=== PATIENT | male | born 1930 | race Caucasian/White ===

== ENCOUNTER 2019-07-07 10:43 | Emergency (ER) | payer MEDICARE ==
[2019-07-07 12:55] LABS: ABS Basophils 0.1 10^3/ul (0-0.2); ABS Eosinophils 0.4 10^3/ul (0-0.6); ABS Lymphocytes 2.1 10^3/ul (1.0-4.8); ABS Monocytes 0.9 10^3/ul (0-0.8); ABS Neutrophils 5.7 10^3/ul (1.5-7.7); Hematocrit 41 % (42-52); Hemoglobin 13.5 g/dL (14.0-18.0); Mean Corpuscular HGB Conc 34 g/dL (31-36); Mean Corpuscular Hemoglobin 29 pg (27-31); Mean Corpuscular Volume 86 fL (80-94); Mean Platelet Volume 6.9 fL (7.4-10.4); Platelet Count 335 10^3/uL (150-450); Red Blood Count 4.71 10^6 /uL (4.18-5.48); Red Cell Distribution Width 15 % (10-15); White Blood Count 9.1 10^3/uL (3.5-10.8)
[2019-07-07 13:16] LABS: Albumin 3.8 g/dL (3.2-5.2); Albumin/Globulin Ratio 1.2 (1-3); Calcium 9.1 mg/dL (8.6-10.3); EGFR African American 72.8 (>60); EGFR Non-African American 60.2 (>60); Globulin 3.1 g/dL (2-4); Potassium 3.6 mmol/L (3.5-5.0); Total Bilirubin 0.8 mg/dL (0.2-1.0); Total Protein 6.9 g/dL (6.4-8.9)
--- NOTE | 2019-07-07 13:44 | ED ---
Dizziness - HPI Summary HPI Summary: Pt is an 89 y/o M w HTN presenting to the ED with a chief complaint of dizziness /lightheadedness initially onset this morning. He woke up with slight dizziness, took a shower, got ready for the day the lightheadedness resolved. However when he walked, when he got to the living room the lightheadeness resolved. He describes the dizziness as lightheadedness, like hes going to fall over/pass out, not a/w chest pain or vertigo. He also notes that yesterday he was reading and he had an episode of blurred vision which resolved. He reports a hx of bradycardia in the past w HR in 50's. Does not take beta aris. Recently moved here w son, has PCP apt in 2 weeks. Hx HTN, no known arrhythmias or cardiac disease. - History Of Current Complaint Chief Complaint: EDHypertension Stated Complaint: DIZZY Time Seen by Provider: 07/07/19 13:03 Hx Obtained From: Patient Onset/Duration: Still Present, Suddenly Timing: Hours Severity Initially: Moderate Severity Currently: Moderate Character: Lightheaded, Dizzy Aggravating Factor(s): Nothing Alleviating Factor(s): Nothing Associated Signs And Symptoms: Positive: Negative - Allergies/Home Medications Allergies/Adverse Reactions: Allergies Allergy/AdvReac Type Severity Reaction Status Date / Time codeine Allergy Unknown Verified 07/07/19 13:32 Reaction Details PMH/Surg Hx/FS Hx/Imm Hx Previously Healthy: Yes Endocrine/Hematology History: Reports: Hx Diabetes Cardiovascular History: Reports: Hx Hypercholesterolemia, Hx Hypertension Infectious Disease History: No Infectious Disease History: Denies: Traveled Outside the [place] in Last 30 Days - Family History Known Family History: Negative: Diabetes - Social History Alcohol Use: Occasionally Hx Substance Use: No Substance Use Type: Reports: None Hx Tobacco Use: Yes Smoking Status (MU): Former Smoker Review of Systems Negative: Fever Neurological: Other - dizziness, lightheadedness All Other Systems Reviewed And Are Negative: Yes Physical Exam - Summary Physical Exam Summary: Constitutional: Well-developed, Well-nourished, Alert. (-) Distressed. Pt is hard of hearing. Skin: Warm, Dry HENT: Normocephalic; Atraumatic Eyes: Conjunctiva normal Neck: Musculoskeletal ROM normal neck. (-) JVD, (-) Nuchal rigidity Cardio: Rhythm regular, rate bradycardic, Heart sounds normal; Intact distal pulses; Radial pulses are 2+ and symmetric. (-) Murmur Pulmonary/Chest wall: Effort normal. (-) Respiratory distress, (-) Wheezes, (-) Rales Abd: Soft. (-) Tenderness, (-) Distension, (-) Guarding, (-) Rebound Musculoskeletal: (-) Edema Lymph: (-) Cervical adenopathy Neuro: Alert, PERRL, Oriented x3, Strength normal, Cranial nerves II-XII are grossly intact. SILT, Strength 5/5 BUE and BLE, (-) Dysmetria, (-) Nystagmus, ambulates w steady gait. Psych: Mood and affect Normal Triage Information Reviewed: Yes Vital Signs On Initial Exam: Initial Vitals Temp Pulse Resp BP Pulse Ox 98.3 F 48 16 191/82 97 07/07/19 10:45 07/07/19 10:45 07/07/19 10:45 07/07/19 10:45 07/07/19 10:45 Vital Signs Reviewed: Yes Procedures - Sedation Patient Received Moderate/Deep Sedation with Procedure: No Diagnostics - Vital Signs Vital Signs Temp Pulse Resp BP Pulse Ox 07/07/19 13:04 49 183/84 100 07/07/19 12:43 97.6 F 48 16 171/74 98 07/07/19 10:45 98.3 F 48 16 191/82 97 - Laboratory Lab Results: Lab Results 07/07/19 07/07/19 Range/Units 12:29 12:29 WBC 9.1 (3.5-10.8) 10^3/uL RBC 4.71 (4.18-5.48) 10^6 /uL Hgb 13.5 L (14.0-18.0) g/dL Hct 41 L (42-52) % MCV 86 (80-94) fL MCH 29 (27-31) pg MCHC 34 (31-36) g/dL RDW 15 (10-15) % Plt Count 335 (150-450) 10^3/uL MPV 6.9 L (7.4-10.4) fL Neut % (Auto) 62.6 % Lymph % (Auto) 23.0 % [place] % (Auto) 9.6 % Eos % (Auto) 4.0 % Baso % (Auto) 0.8 % Absolute Neuts (auto) 5.7 (1.5-7.7) 10^3/ul Absolute Lymphs (auto) 2.1 (1.0-4.8) 10^3/ul Absolute Monos (auto) 0.9 H (0-0.8) 10^3/ul Absolute Eos (auto) 0.4 (0-0.6) 10^3/ul Absolute Basos (auto) 0.1 (0-0.2) 10^3/ul Absolute Nucleated RBC 0.0 10^3/ul Nucleated RBC % 0.0 Sodium 138 (135-145) mmol/L Potassium 3.6 (3.5-5.0) mmol/L Chloride 106 (101-111) mmol/L Carbon Dioxide 28 (22-32) mmol/L Anion Gap 4 (2-11) mmol/L BUN 23 (6-24) mg/dL Creatinine 1.15 (0.67-1.17) mg/dL Est GFR ( Amer) 72.8 (>60) Est GFR (Non-Af Amer) 60.2 (>60) BUN/Creatinine Ratio 20.0 (8-20) Glucose 85 (70-100) mg/dL Calcium 9.1 (8.6-10.3) mg/dL Total Bilirubin 0.80 (0.2-1.0) mg/dL AST 18 (13-39) U/L ALT 15 (7-52) U/L Alkaline Phosphatase 60 (34-104) U/L Troponin I 0.00 (<0.04) ng/mL Total Protein 6.9 (6.4-8.9) g/dL Albumin 3.8 (3.2-5.2) g/dL Globulin 3.1 (2-4) g/dL Albumin/Globulin Ratio 1.2 (1-3) Result Diagrams: 07/07/19 12:29 07/07/19 12:29 Lab Statement: Any lab studies that have been ordered have been reviewed, and results considered in the medical decision making process. - EKG 1049 Cardiac Rate: Bradycardia - 47bpm EKG Rhythm: Sinus Bradycardia ST Segment: Normal Ectopy: None Summary of EKG Findings: An EKG at 1049 shows sinus bradycardia at 47bpm with nml axis, nml intervals. There are T-wave inversions in lead I and aVL. No STEMI. No prior for comparison. ED physician has reviewed and interpreted this report. 1349 Cardiac Rate: Bradycardia - 50bpm EKG Rhythm: Sinus Bradycardia ST Segment: Normal Ectopy: None Summary of EKG Findings: An EKG at 1349 shows sinus bradycardia at 50bpm with prolonged MD, nml axis, and no changes from prior EKG. No STEMI. ED physician has reviewed and interpreted this report. Re-Evaluation - Re-Evaluation 1st re-eval Re-Evaluation Time: 15:17 Change: Improved Comment: Pt's holter monitor is placed. Dizzy Course/Dx - Course Course Of Treatment: 89 y/o male w hx HTN and bradycardia p/w lightheadedness. - Dizziness ddx: Differential diagnosis includes: Cardiac causes - will check EKG, troponin, HR in 50's when ambulating. Electrolyte disturbances - will check CMP. Anemia - will check CBC. No vertigo to suggest posterior stroke. Patient has no focal neurologic abnormalities and no recurrent lightheadedness. Heart rate in the high 40s low 50s here. Patient states he normally runs in the 50s. No syncope, no chest pain. Patient states he had lightheadedness while here. Dr. Hawthorne of cardiology was consulted to states patient ca get holter monitor, and follow-up in her office. No indications for pacemaker placement this time. Patient and son comfortable with that. Patient was given a Holter monitor and will return for worsening symptoms. - Diagnoses Provider Diagnoses: Lightheadedness, Bradycardia Discharge ED - Sign-Out/Discharge Documenting (check all that apply): Patient Departure - Discharge Plan Condition: Stable Disposition: HOME Patient Education Materials: Bradycardia (ED) Referrals: [facility] [Outside] Holly Hawthorne MD [Medical Doctor] - - Billing Disposition and Condition Condition: STABLE Disposition: Home - Attestation Statements Document Initiated by Scribe: Yes Documenting Scribe: Geetha Corbett Provider For Whom Scribe is Documenting (Include Credential): Sandra Goodrich MD. Scribe Attestation: Geetha Wick, scribed for Sandra Goodrich MD. on 07/07/19 at 1522. Scribe Documentation Reviewed: Yes Provider Attestation: The documentation as recorded by the scribe, Geetha Corbett accurately reflects the service I personally performed and the decisions made by me, Sandra Goodrich MD. Status of Scribe Document: Viewed Consult Consult: 2727 - I spoke with Dr. Hawthorne who recommends discharging the patient on a Holter monitor. She recommends him following up with her, and states that the pt may need a pacemaker at some point.
[2019-07-07 15:30] VITALS: BP 177/83
== END 2019-07-07 15:29 | disposition home or self-care (01) ==
LOC: ED 10:43
DX: R42 Dizziness and giddiness (principal); R00.1 Bradycardia, unspecified; I10 Essential (primary) hypertension; E11.9 Type 2 diabetes mellitus without complications; E78.00 Pure hypercholesterolemia, unspecified; Z87.891 Personal history of nicotine dependence; Z79.84 Long term (current) use of oral hypoglycemic drugs; Z79.899 Other long term (current) drug therapy; Z88.5 Allergy status to narcotic agent
CPT/HCPCS: 36415; 80053; 84484; 85025; 93005; 93225; 93226; 99282

== ENCOUNTER 2019-08-08 22:41 | Emergency (ER) | payer MEDICARE ==
--- OUTSIDE RECORDS SUMMARY | 2019-08-08 22:54 | XMS REPORT | Continuity of Care Document ---
:1930 External Reference #:[id number] Author Name Patricia Rivera MD (transmitted by agent of provider Jennifer Fairbanks) Address [address], [place] [address] Care Team Providers Name Role Phone Patricia Rivera MD - Internal Care Team Information Surveillance Analyst Medicine Problems Description No Information Available Social History Type Date Description Comments Sex Unknown Tobacco Use Start: Unknown Patient has never smoked Smoking Status Reviewed: 07/28/19 Patient has never smoked Allergies, Adverse Reactions, Alerts Active Allergies Reaction Severity Comments Date Codeine doesn't remember..long time ago 07/14/2019 Medications Active Medications SIG Qnty Indications Ordering Provider Date Amlodipine Besylate Take 1 tab by 90tabs I10 Patricia Rivera, 07/28/2019 5mg mouth daily MD Tablets Silodosin Take 1 tab daily 30caps N40.0 Patricia Rivera, 07/28/2019 4mg Capsules at bedtime MD Simvastatin 1 by mouth every Unknown 20mg day Tablets Lisinopril 1 by mouth every Unknown 40mg Tablets day Glipizide take one tablet Unknown 5mg Tablets by mouth twice a day Immunizations Description No Information Available Vital Signs Date Vital Result Comment 07/28/2019 11:04am Weight 209.38 lb Heart Rate 48 /min BP Systolic 181 mmHg BP Diastolic 80 mmHg BP Systolic Sitting 148 mmHg BP Diastolic Sitting 76 mmHg Respiratory Rate 16 /min Body Temperature 97.3 F O2 % BldC Oximetry 99 % 07/14/2019 1:20pm Height 67.25 inches 5'7.25" Weight 203.00 lb Heart Rate 48 /min BP Systolic Sitting 174 mmHg BP Diastolic Sitting 83 mmHg Body Temperature 97.9 F O2 % BldC Oximetry 98 % BMI (Body Mass Index) 31.6 kg/m2 Results Test Acquired Date Facility Test Result H/L Range Note Basic Metabolic 07/14/2019 [facility] Sodium 140 mmol/L Normal 135-[address] [place] [address] [phone] Potassium 3.9 mmol/L Normal 3.5-5.0 Chloride 107 mmol/L Normal 101-111 Co2 Carbon Dioxide 27 mmol/L Normal 22-32 Anion Gap 6 mmol/L Normal 2-11 Glucose 96 mg/dL Normal 70-100 Blood Urea Nitrogen 28 mg/dL High 6-24 Creatinine 1.25 mg/dL High 0.67-1.17 BUN/Creatinine Ratio 22.4 High 8-20 Calcium 9.1 mg/dL Normal 8.6-10.3 Egfr Non- 54.6 >60 Egfr 66.1 >60 1 Laboratory test 07/14/2019 [facility] Hemoglobin A1c 5.9 % High 4.0-5.[address] (Glyco HGB) [place] [address] [phone] TSH (Thyroid Stim Horm) 3.36 mcIU/mL Normal 0.34-5.60 Urine Microalbumin 07/14/2019 [facility] Urine Creatinine 107.89 mg/dL Random [address] [place] [address] [phone] Ur Microalbumin (mg/L) 898.9 mg/L Urine Microalbumin/Creatinine 833.1 High <31 CBC No Diff 07/14/2019 [facility] White Blood 10.4 10^3/uL Normal 3.5-10.[address] [place] [address] [phone] Red Blood Count 4.53 10^6/uL Normal 4.18-5.48 Hemoglobin 13.1 g/dL Low 14.0-18.0 Hematocrit 39 % Low 42-52 Mean Corpuscular Volume 85 fL Normal 80-94 Mean Corpuscular Hemoglobin 29 pg Normal 27-31 Mean Corpuscular HGB Conc 34 g/dL Normal 31-36 Red Cell Distribution Width 15 % Normal 10-15 Platelet Count 311 10^3/uL Normal 150-450 Mean Platelet Volume 7.3 fL Low 7.4-10.4 Serum or plasma 07/07/2019 N2N/CCD Import Serum or plasma 138 135-145 sodium measurement sodium measurement mmol/L (moles/volume) (moles/volume) Serum or plasma 07/07/2019 N2N/CCD Import Serum or plasma 3.6 3.5-5.0 potassium potassium mmol/L measurement measurement (moles/volum (moles/volume) Serum or plasma 07/07/2019 N2N/CCD Import Serum or plasma 106 101-111 chloride measurement chloride measurement mmol/L (moles/volume (moles/volume) Serum or plasma 07/07/2019 N2N/CCD Import Serum or plasma 28 mmol/L 22- 32 carbon dioxide, carbon dioxide, total measurement total measurement (moles/volume) Serum or plasma 07/07/2019 N2N/CCD Import Serum or plasma 4 mmol/L 2-11 anion gap anion gap Serum glucose 07/07/2019 N2N/CCD Import Serum glucose 85 mg/dL 70-100 measurement measurement (mass/volume) (mass/volume) Serum or plasma urea 07/07/2019 N2N/CCD Import Serum or plasma urea 23 mg/ dL 6-24 nitrogen measurement nitrogen measurement (mass/vo (mass/volume) Serum or plasma 07/07/2019 N2N/CCD Import Serum or plasma 1.15 0.67- 1.17 creatinine creatinine mg/dL measurement measurement (mass/volum (mass/volume) Serum or plasma urea 07/07/2019 N2N/CCD Import Serum or plasma urea 20.0 8-20 nitrogen/creatinine nitrogen/creatinine ratio ratio Serum or plasma 07/07/2019 N2N/CCD Import Serum or plasma 9.1 mg/dL 8.6- 10.3 calcium measurement calcium measurement (mass/volume) (mass/volume) Serum total protein 07/07/2019 N2N/CCD Import Serum total protein 6.9 g/dL 6.4-8.9 measurement measurement (mass/volume) (mass/volume) Serum or plasma 07/07/2019 N2N/CCD Import Serum or plasma 3.8 g/dL 3.2- 5.2 albumin measurement albumin measurement by bromocresol by bromocresol green (BCG) dye binding method (ma Lab Results 07/07/2019 N2N/CCD Import Globulin 3.1 g/dL 2-4 Serum or plasma 07/07/2019 N2N/CCD Import Serum or plasma 1.2 1-3 albumin/globulin albumin/globulin mass ratio mass ratio Serum or plasma 07/07/2019 N2N/CCD Import Serum or plasma 0.80 0.2-1.0 total bilirubin total bilirubin mg/dL measurement (mass/ measurement (mass/volume) Serum or plasma 07/07/2019 N2N/CCD Import Serum or plasma 60 U/L 34-104 alkaline phosphatase alkaline phosphatase measurement ( measurement (enzymatic activity/volume) Serum or plasma 07/07/2019 N2N/CCD Import Serum or plasma 15 U/L 7-52 alanine alanine aminotransferase aminotransferase measureme measurement (enzymatic activity/volume) Serum or plasma 07/07/2019 N2N/CCD Import Serum or plasma 18 U/L 13-39 aspartate aspartate aminotransferase aminotransferase measure measurement (enzymatic activity/volume) Serum or plasma 07/07/2019 N2N/CCD Import Serum or plasma 0.00 troponin i.cardiac troponin i.cardiac ng/mL measurement (ma measurement (mass/volume) Estimated glomerular 07/07/2019 N2N/CCD Import Estimated glomerular 60.2 filtration rate filtration rate (GFR) non-Afr (GFR) non- Lab Results 07/07/2019 N2N/CCD Import Estimated GFR 72.8 () Automated blood 07/07/2019 N2N/CCD Import Automated blood 9.1 3.5-10.8 leukocytes count leukocytes count 10^3/uL corrected for nuc corrected for nucleated erythrocytes (number/volume) Automated blood 07/07/2019 N2N/CCD Import Automated blood 4.71 4.18- 5.48 erythrocyte count erythrocyte count 10^6/uL (number/volume) (number/volume) Blood hemoglobin 07/07/2019 N2N/CCD Import Blood hemoglobin 13.5 g/dL 14.0-18.0 measurement measurement (mass/volume) (mass/volume) Automated blood 07/07/2019 N2N/CCD Import Automated blood 41 % 42-52 hematocrit hematocrit (percentage) (percentage) Automated 07/07/2019 N2N/CCD Import Automated 86 fL 80-94 erythrocyte mean erythrocyte mean corpuscular volume corpuscular volume Automated 07/07/2019 N2N/CCD Import Automated 29 pg 27-31 erythrocyte mean erythrocyte mean corpuscular corpuscular hemoglobin hemoglobin (mass per erythrocyte) Automated 07/07/2019 N2N/CCD Import Automated 34 g/dL 31-36 erythrocyte mean erythrocyte mean corpuscular corpuscular hemoglobin hemoglobin concentration measurement (mass/vol Automated 07/07/2019 N2N/CCD Import Automated 15 % 10-15 erythrocyte erythrocyte distribution width distribution width ratio ratio Automated blood 07/07/2019 N2N/CCD Import Automated blood 335 150-450 platelet count platelet count 10^3/uL (number/volume) (number/volume) Automated blood 07/07/2019 N2N/CCD Import Automated blood 6.9 fL 7.4- 10.4 platelet mean volume platelet mean volume measurement measurement CT biopsy liver 07/07/2019 N2N/CCD Import CT biopsy liver 5.7 1.5-7.7 10^3/ul Blood lymphocytes 07/07/2019 N2N/CCD Import Blood lymphocytes 2.1 1.0- 4.8 automated count automated count 10^3/ul (number/volume) (number/volume) Blood monocytes 07/07/2019 N2N/CCD Import Blood monocytes 0.9 0-0.8 automated count automated count 10^3/ul (number/volume) (number/volume) Automated blood 07/07/2019 N2N/CCD Import Automated blood 0.4 0-0.6 eosinophil count eosinophil count 10^3/ul (number/volume) (number/volume) Automated blood 07/07/2019 N2N/CCD Import Automated blood 0.1 0-0.2 basophil count basophil count 10^3/ul (number/volume) (number/volume) Blood nucleated 07/07/2019 N2N/CCD Import Blood nucleated 0.0 erythrocytes erythrocytes 10^3/ul automated count automated count (numb (number/volume) Automated blood 07/07/2019 N2N/CCD Import Automated blood 62.6 % neutrophils/100 neutrophils/100 leukocytes leukocytes Automated blood 07/07/2019 N2N/CCD Import Automated blood 23.0 % lymphocytes/100 lymphocytes/100 leukocytes leukocytes Automated blood 07/07/2019 N2N/CCD Import Automated blood 9.6 % monocytes/100 monocytes/100 leukocytes leukocytes Automated blood 07/07/2019 N2N/CCD Import Automated blood 4.0 % eosinophils/100 eosinophils/100 leukocytes leukocytes Automated blood 07/07/2019 N2N/CCD Import Automated blood 0.8 % basophils/100 basophils/100 leukocytes leukocytes Automated blood 07/07/2019 N2N/CCD Import Automated blood 0.0 nucleated nucleated erythrocytes erythrocytes detection detection 1 Because ethnic data is not always readily available, this report includes an eGFR for both -Americans and non- Americans. The National Kidney Disease Education Program (NKDEP) does not endorse the use of the MDRD equation for patients that are not between the ages of 18 and 70, are , have extremes of body size, muscle mass, or nutritional status, or are non- or non-. According to the National Kidney Foundation, irrespective of diagnosis, the stage of the disease is based on the level of kidney function: Stage Description GFR(mL/min/1.73 m(2)) 1 Kidney damage with normal or decreased GFR 90 2 Kidney damage with mild decrease in GFR 60-89 3 Moderate decrease in GFR 30-59 4 Severe decrease in GFR 15-29 5 Kidney failure <15 (or dialysis) 2 Therapeutic target for the treatment of diabetes mellitus patients is <7% HBA1C, and in selective patients <6.0%. Please refer to [place] [employer] diabetic care guidelines for further information. Procedures Date Code Description Status 07/12/2019 48535 Holter Monitor Review (24 hr)dr kurtz & clary only Completed Medical Devices Description No Information Available Encounters Description No Information Available Assessments Date Code Description Provider 07/28/2019 I10 Essential (primary) hypertension Patricia Rivera MD 07/28/2019 E11.9 Type 2 diabetes mellitus without complications Patricia Rivera MD 07/28/2019 N40.0 Benign prostatic hyperplasia without lower Patricia Rivera MD urinary tract symptoms 07/14/2019 R42 Dizziness and giddiness Patricia Rivera MD 07/14/2019 E11.9 Type 2 diabetes mellitus without complications Patricia Rivera MD 07/14/2019 I10 Essential (primary) hypertension Patricia Rivera MD 07/14/2019 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 Plan of Treatment 07/28/2019 - Patricia Rivera MDI10 Essential (primary) hypertensionNew Medication:Amlodipine Besylate 5 mg - Take 1 tab by mouth dailyComments:Your BP is still elevated todayBP Goal <130/80Please monitor BP at home for the next 2-3 weeks and leave the readings in the office STOP DyazideSTART Hydroclorothiazide 25mg dailySTART Amlodipine 5mg dailyCONTINUE Lisinopril 40mg daily CONTINUE Glipizide 5mg 1/2 tab daily CONTINUE SimvastatinSTART Silodosin Please sign ALEJANDRO and have hx faxed to [address], [address], [place] [address] Fax E11.9 Type 2 diabetes mellitus without complicationsComments:CONTINUE Glipizide 5mg 1/2 tab dailyReferral:Boris Edwards MD, [email or web address] Benign prostatic hyperplasia without lower urinary tract symptomsNew Medication:Silodosin 4 mg - Take 1 tab daily at bedtime Functional Status Description No Information Available Mental Status Description No Information Available Referrals Refer to Reason for Referral Status Appt Date Boris Edwards MD Created [address] [place] [address] [place] [phone]
--- OUTSIDE RECORDS SUMMARY | 2019-08-08 22:54 | XMS REPORT | Continuity of Care Document ---
:1930 External Reference #:[id number] Author Name Patricia Rivera MD (transmitted by agent of provider Elizabeth Taylor) Address [address], [place] [address] Care Team Providers Name Role Phone Patricia Rivera MD - Internal Care Team Information Finance Analyst Medicine Problems Description No Information Available Social History Type Date Description Comments Sex Unknown Tobacco Use Start: Unknown Patient has never smoked Smoking Status Reviewed: 07/14/19 Patient has never smoked Allergies, Adverse Reactions, Alerts Active Allergies Reaction Severity Comments Date Codeine doesn't remember..long time ago 07/14/2019 Medications Active Medications SIG Qnty Indications Ordering Provider Date Simvastatin 1 by mouth every Unknown 20mg Tablets day Lisinopril 1 by mouth every Unknown 40mg Tablets day Glipizide take one tablet Unknown 5mg Tablets by mouth twice a day Dyazide 1 by mouth every Unknown 37.5-25mg day Capsules Immunizations Description No Information Available Vital Signs Date Vital Result Comment 07/14/2019 1:20pm Height 67.25 inches 5'7.25" Weight 203.00 lb Heart Rate 48 /min BP Systolic Sitting 174 mmHg BP Diastolic Sitting 83 mmHg Body Temperature 97.9 F O2 % BldC Oximetry 98 % BMI (Body Mass Index) 31.6 kg/m2 Results Test Acquired Facility Test Result H/L Range Note Date Serum or plasma 07/07/2019 N2N/CCD Import Serum or plasma 138 135-145 sodium measurement sodium measurement mmol/L (moles/volume) (moles/volume) Serum or plasma 07/07/2019 N2N/CCD Import Serum or plasma 3.6 3.5-5.0 potassium potassium mmol/L measurement measurement (moles/volum (moles/volume) Serum or plasma 07/07/2019 N2N/CCD Import Serum or plasma 106 101-111 chloride chloride mmol/L measurement measurement (moles/volume (moles/volume) Serum or plasma 07/07/2019 N2N/CCD Import Serum or plasma 28 mmol/L 22- 32 carbon dioxide, carbon dioxide, total measurement total measurement (moles/volume) Serum or plasma 07/07/2019 N2N/CCD Import Serum or plasma 4 mmol/L 2-11 anion gap anion gap Serum glucose 07/07/2019 N2N/CCD Import Serum glucose 85 mg/dL 70-100 measurement measurement (mass/volume) (mass/volume) Serum or plasma 07/07/2019 N2N/CCD Import Serum or plasma 23 mg/dL 6-24 urea nitrogen urea nitrogen measurement measurement (mass/vo (mass/volume) Serum or plasma 07/07/2019 N2N/CCD Import Serum or plasma 1.15 0.67-1. creatinine creatinine mg/dL 17 measurement measurement (mass/volum (mass/volume) Serum or plasma 07/07/2019 N2N/CCD Import Serum or plasma 20.0 8-20 urea urea nitrogen/creatinine nitrogen/creatinine ratio ratio Serum or plasma 07/07/2019 N2N/CCD Import Serum or plasma 9.1 mg/dL 8.6- 10. calcium measurement calcium measurement 3 (mass/volume) (mass/volume) Serum total protein 07/07/2019 N2N/CCD [...] Serum or plasma 60 U/L 34-104 alkaline alkaline phosphatase phosphatase measurement ( measurement (enzymatic activity/volume) Serum [...] i.cardiac ng/mL measurement (ma measurement (mass/volume) Estimated 07/07/2019 N2N/CCD Import Estimated 60.2 glomerular glomerular filtration rate filtration rate (GFR) non-Afr (GFR) non- Lab Results 07/07/2019 N2N/CCD Import Estimated GFR 72.8 () Automated blood 07/07/2019 N2N/CCD Import Automated blood 9.1 3.5-10. leukocytes count leukocytes count 10^3/uL 8 corrected for nuc corrected for nucleated erythrocytes (number/volume) Automated blood 07/07/2019 N2N/CCD Import Automated blood 4.71 4.18-5. erythrocyte count erythrocyte count 10^6/uL 48 (number/volume) (number/volume) Blood hemoglobin 07/07/2019 N2N/CCD Import Blood hemoglobin 13.5 g/dL 14.0-18 measurement measurement .0 (mass/volume) (mass/volume) Automated blood 07/07/2019 N2N/CCD Import [...] N2N/CCD Import Automated blood 6.9 fL 7.4- 10. platelet mean platelet mean 4 volume measurement volume measurement CT biopsy liver 07/07/2019 N2N/CCD Import [...] 0.0 nucleated nucleated erythrocytes erythrocytes detection detection Procedures Date Code Description Status 07/12/2019 60542 Holter Monitor Review (24 hr)dr kurtz & eunp only Completed Medical Devices Description No Information Available Encounters Description No Information Available Assessments Date Code Description Provider 07/14/2019 R42 Dizziness and giddiness Patricia Rivera MD 07/14/2019 E11.9 Type 2 diabetes mellitus without complications Patricia Rivera MD 07/14/2019 I10 Essential (primary) hypertension Patricia Rivera MD 07/14/2019 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
[2019-08-08] MEDS ORDERED: diPHENhydraMINE PO* 50 MG PO ONE (23:18)
--- NOTE | 2019-08-08 23:18 | ED ---
Lower Extremity - HPI Summary HPI Summary: Patient complains of mild bilateral pedal edema starting yesterday, recurrent rash times months. No prior history of lower extremity edema. Was improved this morning when he woke up, and return during the day. Patient states he did a lot more walking today than usual. Rash described as pruritic, small satellite lesions on lower extremities, right arm and back. Denies fever, cough , sore throat, oral swelling, ERVIN, neck stiffness, CP, SOB, N/V/D, abdominal pain , change in urine, change in BM. Denies known trigger, denies new soaps, detergents, lotions, shampoos. Patient lives with his who does not get rash. Patient recently started on amlodipine 2 weeks ago. Medical history is DM, HDL, HTN, bradycardia. 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 Mechanism Of Injury: Unknown Onset of Pain: Days Severity Currently: None Pain Intensity: 0 Pain Scale Used: 0-10 Numeric Timing: Intermittent Associated Signs And Symptoms: Positive: Redness Able to Bear Weight: Yes - Allergies/Home Medications Allergies/Adverse Reactions: Allergies Allergy/AdvReac Type Severity Reaction Status Date / Time codeine Allergy Unknown Verified 08/08/19 22:45 Reaction Details Home Medications: Home Medications Silodosin 4 mg PO DAILY 08/08/19 [History Confirmed 08/08/19] amLODIPine TAB* [Norvasc 5 mg TAB*] 5 mg PO DAILY 08/08/19 [History Confirmed ] PMH/Surg Hx/FS Hx/Imm Hx Endocrine/Hematology History: Reports: Hx Diabetes Cardiovascular History: Reports: Hx Hypercholesterolemia, Hx Hypertension History: Denies: Hx Dialysis Sensory History: Denies: Hx Eye Prosthesis Opthamlomology History: Denies: Hx Legally Blind EENT History: Denies: Hx Deafness Infectious Disease History: No Infectious Disease History: Denies: Traveled Outside the [place] in Last 30 Days - Family History Known Family History: Negative: Diabetes - Social History Alcohol Use: Occasionally Alcohol Amount: wine Hx Substance Use: No Substance Use Type: Reports: None Hx Tobacco Use: Yes Smoking Status (MU): Former Smoker Review of Systems Constitutional: Negative Eyes: Negative ENT: Negative Cardiovascular: Negative Respiratory: Negative Gastrointestinal: Negative Genitourinary: Negative Musculoskeletal: Negative Skin: Other Neurological: Negative Psychological: Normal All Other Systems Reviewed And Are Negative: Yes Physical Exam - Summary Physical Exam Summary: Very mild edema to bilateral lower extremities. Nonpitting. Calves soft nontender bilaterally. Multiple small erythematous small satellite lesions to bilateral lower extremities, right forearm and left side back and neck. Insect bites versus dermatitis. Lung sounds clear to auscultation bilaterally. RRR. Triage Information Reviewed: Yes Vital Signs On Initial Exam: Initial Vitals Temp Pulse Resp BP Pulse Ox 98.2 F 56 15 180/74 99 08/08/19 22:42 08/08/19 22:42 08/08/19 22:42 08/08/19 22:42 08/08/19 22:42 Vital Signs Reviewed: Yes Appearance: Positive: Well-Appearing Skin: Positive: Warm Head/Face: Positive: Normal Head/Face Inspection Eyes: Positive: Normal ENT: Positive: Normal ENT inspection Neck: Positive: Supple Respiratory/Lung Sounds: Positive: Clear to Auscultation Cardiovascular: Positive: Normal Abdomen Description: Positive: Nontender Musculoskeletal: Positive: Normal Neurological: Positive: Normal Psychiatric: Positive: Normal AVPU Assessment: Alert - Joellen Coma Scale Best Eye Response: 4 - Spontaneous Best Motor Response: 6 - Obeys Commands Best Verbal Response: 5 - Oriented Coma Scale Total: 15 Procedures - Sedation Patient Received Moderate/Deep Sedation with Procedure: No Diagnostics - Vital Signs Vital Signs Temp Pulse Resp BP Pulse Ox 08/08/19 22:42 98.2 F 56 15 180/74 99 - Laboratory Result Diagrams: 08/08/19 23:34 08/08/19 23:34 Lab Statement: Any lab studies that have been ordered have been reviewed, and results considered in the medical decision making process. Lower Extremity Course/Dx - Course Course Of Treatment: Patient complains of mild bilateral pedal edema starting yesterday, recurrent rash times months. No prior history of lower extremity edema. Was improved this morning when he woke up, and return during the day. Patient states he did a lot more walking today than usual. Rash described as pruritic, small satellite lesions on lower extremities, right arm and back. Denies fever, cough, sore throat, oral swelling, ERVIN, neck stiffness, CP, SOB, N/ V/D, abdominal pain, change in urine, change in BM. Denies known trigger, denies new soaps, detergents, lotions, shampoos. Patient lives with his who does not get rash. Patient recently started on amlodipine 2 weeks ago. Medical history is DM, HDL, HTN, bradycardia. Mildly elevated BP. Vital signs otherwise within normal limits. History of hypertension. WBC 11.2. Hemoglobin 11.6. Creatinine 1.2. BNP 138. Labs otherwise unremarkable. Chest x-ray unremarkable. Patient advised to follow-up with primary care to consider alternative to amlodipine, to further evaluate kidney function and anemia. Patient started on Benadryl by mouth and hydrocortisone 1% cream applied 3 times a day. Follow-up with dermatology. - Diagnoses Provider Diagnoses: Pedal edema, Dermatitis Discharge ED - Sign-Out/Discharge Documenting (check all that apply): Patient Departure - Discharge Plan Condition: Stable Disposition: HOME Patient Education Materials: Leg Edema (ED), Dermatitis (ED) Referrals: Patricia Rivera MD [Primary Care Provider] - Carolyn Arias MD [Medical Doctor] - Additional Instructions: Lower extremity edema may be due to amlodipine. Follow-up with primary care about possibly switching hypertension meds. Take Benadryl 50 mg every 6 hours. Hydrocortisone cream on rash 3 times a day. Follow-up with dermatology Dr. Arias for further evaluation of recurrent rash. - Billing Disposition and Condition Condition: STABLE Disposition: Home
[2019-08-08] MEDS ORDERED: Hydrocortisone 1% CREAM* 30 GM TUBE TOPICAL SCH (23:45)
[2019-08-08 23:56] LABS: ABS Basophils 0.1 10^3/ul (0-0.2); ABS Eosinophils 0.5 10^3/ul (0-0.6); ABS Lymphocytes 2.5 10^3/ul (1.0-4.8); ABS Monocytes 1.1 10^3/ul (0-0.8); Eosinophil % 4.1 %; Hematocrit 35 % (42-52); Hemoglobin 11.6 g/dL (14.0-18.0); Lymphocyte % 22.2 %; Mean Corpuscular HGB Conc 33 g/dL (31-36); Mean Corpuscular Hemoglobin 29 pg (27-31); Mean Corpuscular Volume 86 fL (80-94); Mean Platelet Volume 6.9 fL (7.4-10.4); Nucleated Red Blood Cells % 0.2; Platelet Count 267 10^3/uL (150-450); Red Blood Count 4.01 10^6 /uL (4.18-5.48); Red Cell Distribution Width 15 % (10-15); White Blood Count 11.2 10^3/uL (3.5-10.8)
[2019-08-09 00:06] LABS: Albumin 3.5 g/dL (3.2-5.2); Calcium 8.4 mg/dL (8.6-10.3); Potassium 3.7 mmol/L (3.5-5.0); Total Bilirubin 0.5 mg/dL (0.2-1.0)
[2019-08-09 00:12] LABS: Albumin/Globulin Ratio 1.2 (1-3); BUN/Creatinine Ratio 20.8 (8-20); C Reactive Protein 3.49 mg/L (<8.01); EGFR African American 69.3 (>60); EGFR Non-African American 57.3 (>60); Globulin 2.9 g/dL (2-4); Total Protein 6.4 g/dL (6.4-8.9)
[2019-08-09 00:52] VITALS: BP 163/81
== END 2019-08-09 00:53 | disposition home or self-care (01) ==
LOC: ED 22:41
DX: R60.0 Localized edema (principal); L30.9 Dermatitis, unspecified; E11.9 Type 2 diabetes mellitus without complications; E78.00 Pure hypercholesterolemia, unspecified; I10 Essential (primary) hypertension; Z87.891 Personal history of nicotine dependence; Z79.899 Other long term (current) drug therapy; Z88.5 Allergy status to narcotic agent
CPT/HCPCS: 36415; 71045; 80053; 83880; 85025; 86140; 99283; A9270-GY

== ENCOUNTER 2019-11-13 13:27 | Emergency (ER) | payer OTHER ==
--- OUTSIDE RECORDS SUMMARY | 2019-11-13 13:53 | XMS REPORT | Continuity of Care Document ---
:1930 External Reference #:[id number] Author Name Patricia Rivera MD (transmitted by agent of provider Elizabeth Taylor) Address [address], [place] [address] Care Team Providers Name Role Phone Patricia Rivera MD - Internal Care Team Information Hyperbaric Nurse Medicine Problems Description No Information Available Social History Type Date Description Comments Sex Unknown Tobacco Use Start: Unknown Never Smoked Cigarettes Tobacco Use Start: Unknown Occasionally Smokes Cigarettes Smoking Status Reviewed: 10/06/19 Occasionally Smokes Cigarettes ETOH Use Denies alcohol use Tobacco Use Start: Unknown Patient has never smoked Recreational Drug Use Denies Drug Use Exercise Type/Frequency Exercises rarely Allergies, Adverse Reactions, Alerts Active Allergies Reaction Severity Comments Date Codeine doesn't remember..long time ago 07/14/2019 Medications Active Medications SIG Qnty Indications Ordering Date Provider Alcohol Swabs use 3 times daily 100units Patricia Rivera, 10/06/2019 70% as needed when MD Pads checking FS Freestyle Lancets Test Daily And Up 300units Patricia Rivera, 09/02/2019 To 3 Additional MD 100 Times A Day as Needed Maximum Daily Dose Is 4 Aldactazide 1 by mouth in the 90tabs I12.9 Estefani Carranza MD 09/01/2019 25-25mg morning Tablets Freestyle Lite test blood sugar 3 1units Patricia Rivera, 08/31/2019 Blood Glucose times daily and as MD Monitoring System needed Device Freestyle Lite Test test blood sugar 100units Patricia Rivera, 08/31/2019 daily and as MD Strips needed Silodosin Take 1 tab daily 30caps N40.0 Patricia Rivera, 07/28/2019 4mg at bedtime Capsules Simvastatin 1 by mouth every 90tabs Patricia Rivera, 20mg day MD Tablets Lisinopril 1 by mouth every Unknown 40mg day Tablets Glipizide take 1/2 tablet by Unknown 5mg mouth daily Tablets History Medications 12 Hour Decongestant 1 by moutg 30tabs E11.22 Estefani Lawrence Tere, 09/01/2019 - 120mg vy BURT 09/01/2019 Tablets ER 12HR Freestyle Insulinx Blood check blood 1units Patricia 08/31/2019 - Glucose Monitoring System glucose once MD Miguel 08/31/2019 daily and as W/Device Kit needed Freestyle Insulinx Blood test blood 100units Patricia 08/31/2019 - Glucose Test Strips sugar daily MD Miguel 08/31/2019 Strips or as needed Freestyle Lancets daily and as 100units Patricia 08/31/2019 - Misc needed MD Miguel 09/02/2019 Hydrochlorothiazide Take 1 tab by 30tabs I10 Patricia 08/25/2019 - 25mg Tablets mouth daily MD Miguel 10/06/2019 Hydrochlorothiazide Take 1 tab by 30tabs I10 Patricia 08/10/2019 - 12.5mg mouth once MD Miguel 08/25/2019 Tablets daily Amlodipine Besylate Take 1 tab by 90tabs I10 Patricia 07/28/2019 - 5mg Tablets mouth daily MD Miguel 08/25/2019 Immunizations Description No Information Available Vital Signs Date Vital Result Comment 10/06/2019 2:25pm Height 67.25 inches 5'7.25" Weight 213.00 lb Heart Rate 52 /min BP Systolic Sitting 144 mmHg BP Diastolic Sitting 78 mmHg O2 % BldC Oximetry 99 % BMI (Body Mass Index) 33.1 kg/m2 09/01/2019 1:42pm Height 67.25 inches 5'7.25" Weight 218.00 lb Heart Rate 54 /min BP Systolic Sitting 152 mmHg right arm reg cuff BP Diastolic Sitting 75 mmHg right arm reg cuff O2 % BldC Oximetry 99 % room air BMI (Body Mass Index) 33.9 kg/m2 Results Test Acquired Date Facility Test Result H/L Range Note Basic Metabolic 09/22/2019 [facility] Sodium 139 mmol/L Normal 135-[address] [place] [address] [phone] Potassium 3.9 mmol/L Normal 3.5-5.0 Chloride 106 mmol/L Normal 101-111 Co2 Carbon Dioxide 27 mmol/L Normal 22-32 Anion Gap 6 mmol/L Normal 2-11 Glucose 91 mg/dL Normal 70-100 Blood Urea Nitrogen 36 mg/dL High 6-24 Creatinine 1.30 mg/dL High 0.67-1.17 BUN/Creatinine Ratio 27.7 High 8-20 Calcium 8.8 mg/dL Normal 8.6-10.3 Egfr Non- 52.2 >60 Egfr 63.2 >60 1 Neutrophil Cytoplasmic 09/22/2019 [facility] C-Anca Negative Negative AB [address] [place] [address] [phone] P-Anca Negative Negative 2 CBC Auto 09/22/2019 [facility] White Blood 8.8 10^3/uL Normal 3.5-10.[address] [place] [address] [phone] Red Blood Count 4.48 10^6/uL Normal 4.18-5.48 Hemoglobin 13.4 g/dL Low 14.0-18.0 Hematocrit 39 % Low 42-52 Mean Corpuscular Volume 87 fL Normal 80-94 Mean Corpuscular Hemoglobin 30 pg Normal 27-31 Mean Corpuscular HGB Conc 34 g/dL Normal 31-36 Red Cell Distribution Width 14 % Normal 10-15 Platelet Count 310 10^3/uL Normal 150-450 Mean Platelet Volume 7.0 fL Low 7.4-10.4 Abs Neutrophils 5.2 10^3/uL Normal 1.5-7.7 Abs Lymphocytes 2.4 10^3/uL Normal 1.0-4.8 Abs Monocytes 0.8 10^3/uL Normal 0-0.8 Abs Eosinophils 0.4 10^3/uL Normal 0-0.6 Abs Basophils 0.1 10^3/uL Normal 0-0.2 Abs Nucleated RBC 0.0 10^3/uL Granulocyte % 59.0 % Lymphocyte % 26.8 % Monocyte % 8.6 % Eosinophil % 4.8 % Basophil % 0.8 % Nucleated Red Blood Cells % 0.0 Laboratory test 09/22/2019 [facility] Complement C3 118 mg/dL 75 - [address] [place] [address] [phone] Complement C4 27 mg/dL 14 - 40 4 [place]/Lambda Free 09/22/2019 [facility] [place] Free 5.17 mg/dL Abnormal [address] [place] [address] [phone] Lambda Free Light Chain 2.95 mg/dL Abnormal 6 [place]/Lambda Free Light Chain 1.75 Abnormal 7 Protein 09/22/2019 [facility] Total 6.8 g/dL 6.3 - Electrophoresis [address] [facility] Protein(Pep) 7.9 [place] [address] [phone] Albumin 3.1 g/dL Abnormal 3.4-4.7 Alpha-1 Globulin 0.2 g/dL 0.1-0.3 Alpha-2 Globulin 1.0 g/dL 0.6-1.0 Beta Globulin 1.0 g/dL 0.7-1.2 Gamma Globulin 1.6 g/dL 0.6-1.6 Albumin/Globulin Ratio 0.84 Impression See Comment 8 Laboratory test 09/22/2019 [facility] Rheumatoid < 10 IU/mL Normal <[address] [place] [address] [phone] Urinalysis 09/22/2019 [facility] Urine Color Yellow Profile [address] [place] [address] [phone] Urine Appearance Clear Urine Specific [place] 1.014 Normal 1.010-1.030 Urine pH 5.0 Normal 5-9 Urine Urobilinogen Negative Negative Urine Ketones Negative Negative Urine Protein 2+(100 mg/dL) Abnormal Negative Urine Leukocytes Negative Negative Urine Blood Negative Negative Urine Nitrite Negative Negative Urine Bilirubin Negative Negative Urine Glucose Negative Negative Urine White Blood Cell Absent Absent Urine Red Blood Cell Absent Absent Urine Bacteria Absent Absent Laboratory test 09/22/2019 [facility] Creatinine [place] 71.83 mg /dL finding [address] [place] [address] [phone] Urine Microalbumin 09/22/2019 [facility] Urine Creatinine 71.83 mg/dL [address] [place] [address] [phone] Ur Microalbumin (mg/L) 1038.5 mg/L Urine Microalbumin/Creatinine 1445.7 High <31 Comp Metabolic 08/08/2019 [facility] Sodium 140 mmol/L Normal 135-145 Panel [address] [place] [address] [phone] Potassium 3.7 mmol/L Normal 3.5-5.0 Chloride 109 mmol/L Normal 101-111 Co2 Carbon Dioxide 24 mmol/L Normal 22-32 Anion Gap 7 mmol/L Normal 2-11 Calcium 8.4 mg/dL Low 8.6-10.3 Albumin 3.5 g/dL Normal 3.2-5.2 Total Bilirubin 0.50 mg/dL Normal 0.2-1.0 Glucose 104 mg/dL High 70-100 Blood Urea Nitrogen 25 mg/dL High 6-24 Creatinine 1.20 mg/dL High 0.67-1.17 BUN/Creatinine Ratio 20.8 High 8-20 Total Protein 6.4 g/dL Normal 6.4-8.9 Globulin 2.9 g/dL Normal 2-4 Albumin/Globulin Ratio 1.2 Normal 1-3 Alkaline Phosphatase 60 U/L Normal 34-104 Alt 26 U/L Normal 7-52 Ast 24 U/L Normal 13-39 Egfr Non- 57.3 >60 Egfr 69.3 >60 9 Laboratory test 08/08/2019 [facility] C Reactive 3.49 mg/L Normal <8.[address] [place] [address] [phone] B-Type Natriuretic Peptide BNP 138 pg/mL High <=100 CBC Auto 08/08/2019 [facility] White Blood 11.2 10^3/uL High 3.5-10.[address] [place] [address] [phone] Red Blood Count 4.01 10^6/uL Low 4.18-5.48 Hemoglobin 11.6 g/dL Low 14.0-18.0 Hematocrit 35 % Low 42-52 Mean Corpuscular Volume 86 fL Normal 80-94 Mean Corpuscular Hemoglobin 29 pg Normal 27-31 Mean Corpuscular HGB Conc 33 g/dL Normal 31-36 Red Cell Distribution Width 15 % Normal 10-15 Platelet Count 267 10^3/uL Normal 150-450 Mean Platelet Volume 6.9 fL Low 7.4-10.4 Abs Neutrophils 7.0 10^3/uL Normal 1.5-7.7 Abs Lymphocytes 2.5 10^3/uL Normal 1.0-4.8 Abs Monocytes 1.1 10^3/uL High 0-0.8 Abs Eosinophils 0.5 10^3/uL Normal 0-0.6 Abs Basophils 0.1 10^3/uL Normal 0-0.2 Abs Nucleated RBC 0.0 10^3/uL Granulocyte % 62.6 % Lymphocyte % 22.2 % Monocyte % 10.3 % Eosinophil % 4.1 % Basophil % 0.8 % Nucleated Red Blood Cells % 0.2 CBC No Diff 07/14/2019 [facility] White Blood 10.4 10^3/uL Normal 3.5-10.[address] [place] [address] [phone] Red Blood Count 4.53 10^6/uL Normal 4.18-5.48 Hemoglobin 13.1 g/dL Low 14.0-18.0 Hematocrit 39 % Low 42-52 Mean Corpuscular Volume 85 fL Normal 80-94 Mean Corpuscular Hemoglobin 29 pg Normal 27-31 Mean Corpuscular HGB Conc 34 g/dL Normal 31-36 Red Cell Distribution Width 15 % Normal 10-15 Platelet Count 311 10^3/uL Normal 150-450 Mean Platelet Volume 7.3 fL Low 7.4-10.4 Urine Microalbumin 07/14/2019 [facility] Urine Creatinine 107.89 mg/dL Random [address] [place] [address] [phone] Ur Microalbumin (mg/L) 898.9 mg/L Urine Microalbumin/Creatinine 833.1 High <31 Laboratory test 07/14/2019 [facility] Hemoglobin A1c 5.9 % High 4.0-5.[address] (Glyco HGB) [place] [address] [phone] TSH (Thyroid Stim Horm) 3.36 mcIU/mL Normal 0.34-5.60 Basic Metabolic 07/14/2019 [facility] Sodium 140 mmol/L Normal 135-[address] [place] [address] [phone] Potassium 3.9 mmol/L Normal 3.5-5.0 Chloride 107 mmol/L Normal 101-111 Co2 Carbon Dioxide 27 mmol/L Normal 22-32 Anion Gap 6 mmol/L Normal 2-11 Glucose 96 mg/dL Normal 70-100 Blood Urea Nitrogen 28 mg/dL High 6-24 Creatinine 1.25 mg/dL High 0.67-1.17 BUN/Creatinine Ratio 22.4 High 8-20 Calcium 9.1 mg/dL Normal 8.6-10.3 Egfr Non- 54.6 >60 Egfr 66.1 >60 11 Serum or plasma 07/07/2019 N2N/CCD Import Serum [...] 5 Kidney failure <15 (or dialysis) 2 Negative for cANCA and pANCA patterns by immunofluorescence. ADDITIONAL INFORMATION This test was developed and its performance characteristics determined by [facility] in a manner consistent with CLIA requirements. This test has not been cleared or approved by the U.S. Food and Drug Administration. Test Performed by: [place] [address] Rehabilitation Technician: Gurjit Corado M.D. Ph.D.; CLIA# [id number] 3 Test Performed by: [place] [address] Rehabilitation Technician: Gurjit Corado M.D. Ph.D.; CLIA# [id number] 4 Test Performed by: [place] [address] Rehabilitation Technician: Gurjit Corado M.D. Ph.D.; CLIA# [id number] 5 REFERENCE VALUE 0.3300-1.94 6 REFERENCE VALUE 0.5700-2.63 7 Elevated free light chain ratios between 1.66 and 3.00 may occur due to polyclonal hypergammaglobulinemia or impaired renal clearance. An isolated increased free light chain ratio in this range should be interpreted with caution, and clinical correlation is recommended. REFERENCE VALUE 0.2600-1.65 Test Performed by: [facility] [place] [address] Rehabilitation Technician: Gurjit Corado M.D. Ph.D.; CLIA# [id number] 8 RESULT: No apparent monoclonal protein on serum electrophoresis. Test Performed by: [facility] [place] [address] Rehabilitation Technician: Gurjit Corado M.D. Ph.D.; CLIA# [id number] 9 Because ethnic data is not always readily [...] 15-29 5 Kidney failure <15 (or dialysis) 10 Therapeutic target for the treatment of diabetes mellitus patients is <7% HBA1C, and in selective patients <6.0%. Please refer to [place] [employer] diabetic care guidelines for further information. 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 N18.3 Chronic kidney disease, stage 3 (moderate) R80.9 Proteinuria, unspecified Office Visit 08/25/2019 3:00p [facility] Internal Patricia I10 Essential ( primary) Medicine - Tanya Rivera MD hypertension E11.9 Type 2 diabetes mellitus without complications Office Visit 07/28/2019 11:30a [facility] Internal Patricia I10 Essential ( primary) Medicine - Tanya Rivera MD hypertension E11.9 Type 2 diabetes mellitus without complications N40.0 Benign prostatic hyperplasia without lower urinry tract symp Office Visit 07/14/2019 1:00p [facility] Internal Patricia Rivera, R42 Dizziness and Medicine - Tanya BURT giddiness E11.9 Type 2 diabetes mellitus without complications I10 Essential (primary) hypertension H91.93 Unspecified hearing loss, bilateral Assessments Date Code Description Provider 10/06/2019 M25.511 Pain in right shoulder Patricia Rivera MD 10/06/2019 E11.22 Type 2 diabetes mellitus with diabetic chronic Patricia Rivera MD kidney disease 10/06/2019 N18.3 Chronic kidney disease, stage 3 (moderate) Patricia Rivera MD 10/06/2019 I10 Essential (primary) hypertension Patricia Rivera MD 10/06/2019 H91.93 Unspecified hearing loss, bilateral Patricia Rivera MD 09/01/2019 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 Plan of Treatment 10/06/2019 - Patricia Rivera MDM25.511 Pain in right pykvgcdkW96.22 Type 2 diabetes mellitus with diabetic chronic kidney diseaseComments:Please check your finger stick every morning prior to meals and log it in your note book to reviewPlease call the office to give us the fggitlhT29.3 Chronic kidney disease , stage 3 (moderate)I10 Essential (primary) [id number] Unspecified hearing loss, bilateral Functional Status Description No Information Available Mental Status Description No Information Available Referrals Refer to Reason for Referral Status Appt Date Boris Edwards MD Created [address] [place] [address] [phone]
--- OUTSIDE RECORDS SUMMARY | 2019-11-13 13:53 | XMS REPORT | Continuity of Care Document ---
:1930 External Reference #:[id number] Author Name Estefani Carranza MD (transmitted by agent of provider Caroline Mallory) Address [address] [place] [address] Care Team Providers Name Role Phone Patricia Rivera MD - Internal Care Team Information Skip Pitman [phone] Medicine Patricia Rivera MD - Internal Care Team Information Skip Pitman [phone] Medicine Problems Description No Information Available Social History Type Date Description Comments Sex Unknown Tobacco Use Start: Unknown Never Smoked Cigarettes Smoking Status Reviewed: 10/15/19 Never Smoked Cigarettes ETOH Use Denies alcohol use Tobacco Use Start: Unknown Patient has never smoked Recreational Drug Use Denies Drug Use Exercise Type/Frequency Exercises rarely Allergies, Adverse Reactions, Alerts Active Allergies Reaction Severity Comments Date Codeine doesn't remember..long time ago 07/14/2019 Medications Active Medications SIG Qnty Indications Ordering Date Provider Diclofenac Sodium apply to the 100gm G89.4 Estefani Carranza MD 10/15/2019 affected area 3% Gel twice a day Lidocaine Pain apply one patch 10units G89.4 Estefani Carranza MD 10/15/2019 Relief daily for pain 4% Patches Alcohol Swabs use 3 times daily 100units [...] Lite Test test blood sugar 100units Patricia Rivera 08/31/2019 daily and as MD Strips needed Silodosin Take 1 Capsule By 90caps N40.0 Patricia Rivera, 07/28/2019 4mg Mouth Daily AT MD Capsules Bedtime Glipizide take 1/2 tablet by Unknown 5mg mouth daily Tablets Lisinopril 1 by mouth every Unknown 40mg day Tablets Simvastatin 1 by mouth every 90tabs Patricia Rivera, 20mg day Tablets History Medications 12 Hour Decongestant 1 by moutg 30tabs E11.22 Estefani Carranza 09/01/2019 - 120mg vy BURT 09/01/2019 Tablets [...] Available Vital Signs Date Vital Result Comment 10/15/2019 10:05am Height 68 inches 5'8" Weight 211.00 lb Heart Rate 56 /min BP Systolic 120 mmHg BP Diastolic 62 mmHg Respiratory Rate 18 /min O2 % BldC Oximetry 100 % BMI (Body Mass Index) 32.1 kg/m2 10/06/2019 2:25pm Height 67.25 inches 5'7.25" Weight 213.00 lb Heart Rate 52 /min BP Systolic Sitting 144 mmHg BP Diastolic Sitting 78 mmHg O2 % BldC Oximetry 99 % BMI (Body Mass Index) 33.1 kg/m2 Results Test Acquired Date Facility Test Result H/L Range Note Basic Metabolic 09/22/2019 [facility] Sodium 139 mmol/L Normal 135-145 Panel [address] [place] [address] [phone] Potassium 3.9 mmol/L Normal 3.5-5.0 Chloride 106 mmol/L Normal 101-111 Co2 Carbon Dioxide 27 mmol/L Normal 22-32 Anion Gap 6 mmol/L Normal 2-11 Glucose 91 mg/dL Normal 70-100 Blood Urea Nitrogen 36 mg/dL High 6-24 Creatinine 1.30 mg/dL High 0.67-1.17 BUN/Creatinine Ratio 27.7 High 8-20 Calcium 8.8 mg/dL Normal 8.6-10.3 Egfr Non- 52.2 >60 Egfr 63.2 >60 1 Neutrophil Cytoplasmic 09/22/2019 [facility] C-Anca Negative Negative AB [address] [place] [address] [phone] P-Anca Negative Negative 2 CBC Auto 09/22/2019 [facility] White Blood 8.8 10^3/uL Normal 3.5-10.8 Diff [address] [facility] [place] [address] [phone] Red Blood Count 4.48 10^6/uL Normal 4.18-5.48 [...] Blood Cells % 0.0 Laboratory test 09/22/2019 [facility] Complement C3 118 mg/dL 75 - [address] [place] [address] [phone] Complement C4 27 mg/dL 14 - 40 4 [place]/Lambda Free 09/22/2019 [facility] [place] Free 5.17 mg/dL Abnormal 5 Light Chains Ser [address] [place] [address] [phone] Lambda Free Light Chain 2.95 mg/dL Abnormal 6 [place]/Lambda Free Light Chain 1.75 Abnormal 7 Protein 09/22/2019 [facility] Total 6.8 g/dL 6.3 - Electrophoresis [facility] Protein(Pep) 7.9 [place] [address] [phone] Albumin 3.1 g/dL Abnormal 3.4-4.7 Alpha-1 Globulin 0.2 g/dL 0.1-0.3 Alpha-2 Globulin 1.0 g/dL 0.6-1.0 Beta Globulin 1.0 g/dL 0.7-1.2 Gamma Globulin 1.6 g/dL 0.6-1.6 Albumin/Globulin Ratio 0.84 Impression See Comment 8 Laboratory test 09/22/2019 [facility] Rheumatoid < 10 IU/mL Normal <15 finding [address] [place] [address] [phone] Urinalysis 09/22/2019 [facility] Urine Color Yellow Profile [address] [place] [address] [phone] Urine Appearance Clear Urine Specific [place] 1.014 Normal 1.010-1.030 Urine pH 5.0 Normal 5-9 Urine Urobilinogen Negative Negative Urine Ketones Negative Negative Urine Protein 2+(100 mg/dL) Abnormal Negative Urine Leukocytes Negative Negative Urine Blood Negative Negative Urine Nitrite Negative Negative Urine Bilirubin Negative Negative Urine Glucose Negative Negative Urine White Blood Cell Absent Absent Urine Red Blood Cell Absent Absent Urine Bacteria Absent Absent Laboratory test 09/22/2019 [facility] Creatinine Random 71.83 mg /dL finding [address] [place] [address] [phone] Urine Microalbumin 09/22/2019 [facility] Urine Creatinine 71.83 mg/dL Random [address] [place] [address] [phone] Ur Microalbumin (mg/L) 1038.5 mg/L Urine Microalbumin/Creatinine 1445.7 High <31 Comp Metabolic 08/08/2019 [facility] Sodium 140 mmol/L Normal 135-[address] [place] [address] [phone] Potassium 3.7 mmol/L Normal 3.5-5.0 Chloride 109 [...] Egfr 69.3 >60 9 Laboratory test 08/08/2019 [facility] C Reactive 3.49 mg/L Normal <8.[address] [place] [address] [phone] B-Type Natriuretic Peptide BNP 138 pg/mL High <=100 CBC Auto 08/08/2019 [facility] White Blood 11.2 10^3/uL High 3.5-10.[address] [place] [address] [phone] Red Blood Count 4.01 10^6/uL Low 4.18-5.48 [...] Cells % 0.2 CBC No Diff 07/14/2019 [facility] White Blood 10.4 10^3/uL Normal 3.5-10.[address] [place] [address] [phone] Red Blood Count 4.53 10^6/uL Normal 4.18-5.48 Hemoglobin 13.1 g/dL Low 14.0-18.0 Hematocrit 39 % Low 42-52 Mean Corpuscular Volume 85 fL Normal 80-94 Mean Corpuscular Hemoglobin 29 pg Normal 27-31 Mean Corpuscular HGB Conc 34 g/dL Normal 31-36 Red Cell Distribution Width 15 % Normal 10-15 Platelet Count 311 10^3/uL Normal 150-450 Mean Platelet Volume 7.3 fL Low 7.4-10.4 Urine Microalbumin 07/14/2019 [facility] Urine Creatinine 107.89 mg/dL Random [address] [place] [address] [phone] Ur Microalbumin (mg/L) 898.9 mg/L Urine Microalbumin/Creatinine 833.1 High <31 Laboratory test 07/14/2019 [facility] Hemoglobin A1c 5.9 % High 4.0-5.[address] (Glyco HGB) [place] [address] [phone] TSH (Thyroid Stim Horm) 3.36 mcIU/mL Normal 0.34-5.60 Basic Metabolic 07/14/2019 [facility] Sodium 140 mmol/L Normal 135-[address] [place] [address] [phone] Potassium 3.9 mmol/L Normal 3.5-5.0 Chloride 107 [...] developed and its performance characteristics determined by [facility] in a manner consistent with CLIA requirements. This test has not been cleared or approved by the U.S. Food and Drug Administration. Test Performed by: [facility] [place] [address] [employer] Faculty Member: Gurjit Corado M.D. Ph.D.; CLIA# [id number] 3 Test Performed by: [facility] [place] [address] [employer] Faculty Member: Gurjit Corado M.D. Ph.D.; CLIA# [id number] 4 Test Performed by: [facility] [place] [address] [employer] Faculty Member: Gurjit Corado M.D. Ph.D.; CLIA# [id number] 5 REFERENCE VALUE 0.3300-1.94 6 REFERENCE VALUE 0.5700-2.63 7 Elevated free light chain ratios between 1.66 and 3.00 may occur due to polyclonal hypergammaglobulinemia or impaired renal clearance. An isolated increased free light chain ratio in this range should be interpreted with caution, and clinical correlation is recommended. REFERENCE VALUE 0.2600-1.65 Test Performed by: [facility] [place] [address] [employer] Faculty Member: Gurjit Corado M.D. Ph.D.; CLIA# [id number] 8 RESULT: No apparent monoclonal protein on serum electrophoresis. Test Performed by: [place] [address] [employer] Faculty Member: Gurjit Corado M.D. Ph.D.; CLIA# [id number] 9 Because ethnic data is not always [...] in selective patients <6.0%. 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 N18.3 Chronic kidney disease, stage 3 (moderate) R80.9 Proteinuria, unspecified Office Visit 08/25/2019 3:00p [facility] Internal Patricia I10 Essential ( primary) Medicine - Tanya Rivera MD hypertension E11.9 Type 2 diabetes mellitus without complications Office Visit 07/28/2019 11:30a [facility] Internal Patricia I10 Essential ( primary) Medicine - Tanya Rivera MD hypertension E11.9 Type 2 diabetes mellitus without complications N40.0 Benign prostatic hyperplasia without lower urinry tract symp Office Visit 07/14/2019 1:00p [facility] Internal Patricia Rivera, R42 Dizziness and Medicine - [facility] giddiness E11.9 Type 2 diabetes mellitus without complications I10 Essential (primary) hypertension H91.93 Unspecified hearing loss, bilateral Assessments Date Code Description Provider 10/15/2019 G89.4 Chronic pain syndrome Estefani Carranza MD 10/15/2019 N18.3 Chronic kidney disease, stage 3 (moderate) Estefani Carranza MD 10/06/2019 M25.511 Pain in right shoulder Patricia [...] tachycardia Holly Hawthorne M.D. Plan of Treatment Future Appointment(s):01/14/2020 10:00 am - Estefani Carranza MD at [facility] Hiyeakvwex45 /24/2020 4:00 pm - Amarilis Lockhart M.D., FACP at [facility] Internal Medicine - [facility] - Estefani Carranza MDG89.4 Chronic pain syndromeNew Medication:Diclofenac Sodium 3 % - apply to the affected area twice a dayLidocaine Pain Relief 4 % - apply one patch daily for painFollow up:3 rovjutC47.3 Chronic kidney disease, stage 3 (moderate) Functional Status Description No Information Available Mental Status Description No Information Available Referrals Refer to Reason for Referral Status Appt Date Boris Edwards MD Created [address] [place] [address] [phone]
[2019-11-13] MEDS ORDERED: Acetaminophen TAB* 325 MG PO ONE (14:32)
--- NOTE | 2019-11-13 14:37 | ED ---
Back Pain - HPI Summary HPI Summary: This patient is an 89 year old M presenting to [facility] accompanied by son with a chief complaint of pain from shoulder blades radiating into right arm since 11/12. Pt has had similar symptoms previously but the pain radiating into the left arm. At that time he went to the doctor and they gave him a cortisone shot in left arm. Pt is very sedentary. Patient reports back pain. Patient denies SOB , CP, nausea. Pain worsens with exertion and while sitting up. Pt has PMHx of HTN, high cholesterol, arthritis and diabetes. Pt has never had any heart issues. Pt does not smoke. Medications reviewed. Allergies noted. - History of Current Complaint Chief Complaint: EDShoulderClaRashida Stated Complaint: PAIN IN RIGHT SHOULDER AND ARM PER PT SON Time Seen by Provider: 11/13/19 14:12 Hx Obtained From: Patient Onset/Duration: Gradual Onset, Lasting Hours, Still Present Onset/Duration: Started Hours Ago Timing: Constant Severity Currently: Moderate Pain Intensity: 6 Pain Scale Used: 0-10 Numeric Aggravating Symptom(s): Movement Alleviating Symptom(s): Rest Associated Signs And Symptoms: Positive: Other - back pain - Allergies/Home Medications Allergies/Adverse Reactions: Allergies Allergy/AdvReac Type Severity Reaction Status Date / Time codeine Allergy Unknown Verified 08/08/19 22:45 Reaction Details Home Medications: Home Medications Lisinopril TAB* [Prinivil TAB*] 40 mg PO DAILY 07/07/19 [History Confirmed 08/08] Simvastatin TAB(NF) [Zocor(NF)] 20 mg PO QPM 07/07/19 [History Confirmed ] glipiZIDE TAB* [Glucotrol TAB*] 5 mg PO DAILY 07/07/19 [History Confirmed ] Silodosin 4 mg PO DAILY 08/08/19 [History Confirmed 08/08/19] amLODIPine TAB* [Norvasc 5 mg TAB*] 5 mg PO DAILY 08/08/19 [History Confirmed ] PMH/Surg Hx/FS Hx/Imm Hx Endocrine/Hematology History: Reports: Hx Diabetes Cardiovascular History: Reports: Hx Hypercholesterolemia, Hx Hypertension History: Denies: Hx Dialysis Sensory History: Denies: Hx Eye Prosthesis, Hx Legally Blind, Hx Deafness Opthamlomology History: Denies: Hx Eye Prosthesis, Hx Legally Blind Infectious Disease History: No Infectious Disease History: Denies: Traveled Outside the [place] in Last 30 Days - Family History Known Family History: Negative: Diabetes - Social History Lives: With Family Alcohol Use: Occasionally Alcohol Amount: wine Hx Substance Use: No Substance Use Type: Reports: None Hx Tobacco Use: Yes Smoking Status (MU): Former Smoker Review of Systems Negative: Chest Pain Negative: Shortness Of Breath Negative: Nausea Positive: Other - back pain, arm pain All Other Systems Reviewed And Are Negative: Yes Physical Exam - Summary Physical Exam Summary: Constitutional: Well-developed, Well-nourished, Alert. (-) Distressed Skin: Warm, Dry HENT: Normocephalic; Atraumatic Eyes: Conjunctiva normal Neck: Musculoskeletal ROM normal neck. (-) JVD, (-) Stridor, (-) Tracheal deviation Cardio: Rhythm regular, rate normal, Heart sounds normal; Intact distal pulses; Radial pulses are 2+ and symmetric. (-) Murmur Pulmonary/Chest wall: Effort normal. (-) Respiratory distress, (-) Wheezes, (-) Rales Abd: Soft, (-) tenderness, (-) Distension, (-) Guarding, (-) Rebound Musculoskeletal: (-) Edema; No bony tenderness in spine, shoulder blade or R arm ; Full ROM in shoulder; Bilateral radial pulses 2+ Lymph: (-) Cervical adenopathy Neuro: Alert, Oriented x3 Psych: Mood and affect Normal Triage Information Reviewed: Yes Vital Signs On Initial Exam: Initial Vitals Temp Pulse Resp BP Pulse Ox 98.1 F 50 19 207/113 99 11/13/19 13:28 11/13/19 13:28 11/13/19 13:28 11/13/19 13:28 11/13/19 13:28 Vital Signs Reviewed: Yes Procedures - Sedation Patient Received Moderate/Deep Sedation with Procedure: No Diagnostics - Vital Signs Vital Signs Temp Pulse Resp BP Pulse Ox 11/13/19 13:28 98.1 F 50 19 207/113 99 - Laboratory Result Diagrams: 11/13/19 14:39 11/13/19 14:39 Lab Statement: Any lab studies that have been ordered have been reviewed, and results considered in the medical decision making process. - CT Chest/Abdomen/Pelvis CTA CT Interpretation Completed By: Radiologist Summary of CT Findings: Chest/Abdomen/Pelvis CTA reveals, per radiologist IMPRESSION: 1. There is no aortic dissection or pathologic aneurysm. 2. Questionable eccentric lateral wall thickening at the first portion of the duodenum. Please correlate to signs or symptoms of duodenitis. 3. Ill-defined hyperattenuating focus measuring 1.6 cm and the left lobe of the liver that could be a flash filling hemangioma. On a nonemergent basis this can be further. characterized with ultrasound of the liver. ED physician has reviewed this radiology report. - EKG 13:35 EKG Rhythm: Sinus Bradycardia Summary of EKG Findings: EKG at 13:35 reveals bradycardia with rate of 48 BPM, Flattening of t-waves at lateral leads. 1st degree heart block. This EKG was reviewed and interpreted by ED physician. Re-Evaluation - Re-Evaluation First Eval Re-Evaluation Time: 15:55 Comment: Discussed results and plan of care with pt. Back Pain Course/Dx - Course Course Of Treatment: Patient is here with pain in his right shoulder with a goes down to his right arm. Patient had equal pulses upon arrival and no pain in his shoulder or shoulder blade on palpation. Patient states feelings pain when he stands up and put his arms over his head. Given patient's symptomatology, a stat CT scan was obtained to evaluate for vascular abnormality and thoracic outlet syndrome which was negative. Patient did have an EKG which showed no ischemic changes. Patient had blood work which was grossly unremarkable. Patient states she's had similar episodes in the past in his left shoulder which responded to steroids so patient is given 1 dose of steroids. - Diagnoses Provider Diagnoses: Right shoulder pain Discharge ED - Sign-Out/Discharge Documenting (check all that apply): Patient Departure - Discharge - Discharge Plan Condition: Stable Disposition: HOME Patient Education Materials: Shoulder Pain (ED) Referrals: Patricia Rivera MD [Primary Care Provider] - 3 Days Additional Instructions: Follow up with primary care provider next week to make sure you are getting better. Return to the ED for CP, trouble breathing, or any other concerning symptoms. Take Tylenol for pain. - Billing Disposition and Condition Condition: STABLE Disposition: Home - Attestation Statements Document Initiated by Scribe: Yes Documenting Scribe: Marti Arellano Provider For Whom Scribe is Documenting (Include Credential): Eben Meneses MD Scribe Attestation: Marti Wick, scribed for Eben Meneses MD on 11/13/19 at 1826. Scribe Documentation Reviewed: Yes Provider Attestation: The documentation as recorded by the scribe, Marti Arellano accurately reflects the service I personally performed and the decisions made by me, Eben Meneses MD Status of Scribe Document: Viewed
[2019-11-13 14:50] LABS: ABS Eosinophils 0.1 10^3/ul (0-0.6); ABS Lymphocytes 1.4 10^3/ul (1.0-4.8); ABS Monocytes 1.2 10^3/ul (0-0.8); ABS Neutrophils 9.2 10^3/ul (1.5-7.7); Eosinophil % 0.9 %; Hematocrit 37 % (42-52); Hemoglobin 12.7 g/dL (14.0-18.0); Mean Corpuscular HGB Conc 35 g/dL (31-36); Mean Corpuscular Hemoglobin 30 pg (27-31); Mean Corpuscular Volume 87 fL (80-94); Mean Platelet Volume 6.9 fL (7.4-10.4); Platelet Count 294 10^3/uL (150-450); Red Cell Distribution Width 14 % (10-15)
[2019-11-13] MEDS ORDERED: Iodixanol* (CONTRAST) 320 MG/ML 100 ML SDV IV ONE (14:57)
[2019-11-13 15:06] LABS: Albumin 3.8 g/dL (3.2-5.2); Albumin/Globulin Ratio 1.2 (1-3); BUN/Creatinine Ratio 23.1 (8-20); Calcium 9.1 mg/dL (8.6-10.3); EGFR Non-African American 50.4 (>60); Globulin 3.3 g/dL (2-4); Potassium 3.9 mmol/L (3.5-5.0); Total Protein 7.1 g/dL (6.4-8.9)
[2019-11-13 15:09] LABS: Troponin I 0.01 ng/mL (<0.03)
[2019-11-13] MEDS ORDERED: Dexamethasone IV* 4 MG/ML 1 ML (4 MG) IV SLOW PU ONE (15:51)
[2019-11-13 16:45] VITALS: BP 182/83
== END 2019-11-13 16:45 | disposition home or self-care (01) ==
LOC: ED 13:27
DX: M25.511 Pain in right shoulder (principal); M54.9 Dorsalgia, unspecified; E78.00 Pure hypercholesterolemia, unspecified; E11.9 Type 2 diabetes mellitus without complications; I10 Essential (primary) hypertension; Z79.899 Other long term (current) drug therapy; Z87.891 Personal history of nicotine dependence; Z88.1 Allergy status to other antibiotic agents
CPT/HCPCS: 36415; 71275; 74174; 80053; 84484; 85025; 93005; 96374; 99283; A9270-GY; J1100; Q9967

== ENCOUNTER 2021-08-29 12:21 | Inpatient (IN) ==
[2021-08-29] MEDS ORDERED: Morphine 4 MG/ML VIAL (1 ml) IV ONE (14:05)
[2021-08-29] MEDS ORDERED: Lactated Ringers 1000 ml BAG 1,000 ML IV ONE (14:05)
[2021-08-29 14:38] LABS: ABS Basophils 0.1 10^3/ul (0-0.2); ABS Eosinophils 0.2 10^3/ul (0-0.6); ABS Lymphocytes 1.8 10^3/ul (1.0-4.8); ABS Monocytes 1.3 10^3/ul (0-0.8); Eosinophil % 1.4 %; Hematocrit 37 % (42-52); Hemoglobin 12.3 g/dL (14.0-18.0); Lymphocyte % 15.8 %; Mean Corpuscular HGB Conc 33 g/dL (31-36); Mean Corpuscular Hemoglobin 28 pg (27-31); Mean Corpuscular Volume 85 fL (80-94); Mean Platelet Volume 6.5 fL (7.4-10.4); Platelet Count 403 10^3/uL (150-450); Red Blood Count 4.35 10^6 /uL (4.18-5.48); Red Cell Distribution Width 15 % (10-15); White Blood Count 11.4 10^3/uL (3.5-10.8)
[2021-08-29 15:15] LABS: Albumin 3.8 g/dL (3.2-5.2); Albumin/Globulin Ratio 1.1 (1-3); C Reactive Protein 88.53 mg/L (<8.01); Globulin 3.5 g/dL (2-4); Magnesium 1.7 mg/dL (1.9-2.7); Potassium 3.8 mmol/L (3.5-5.0); Total Bilirubin 0.9 mg/dL (0.2-1.0); Total Protein 7.3 g/dL (6.4-8.9); eGFR CKD-EPI 60.8 (>60)
[2021-08-29] MEDS ORDERED: Iodixanol (CONTRAST) 320 MG/ML 100 ML SDV IV ONE (15:20)
[2021-08-29 16:56] LABS: Urine Appearance Clear; Urine Bilirubin Negative (Negative); Urine Blood 1+ (Negative); Urine Color Straw; Urine Glucose Negative (Negative); Urine Ketones Trace (Negative); Urine Nitrite Negative (Negative); Urine Protein 2+(100 mg/dL) (Negative); Urine Specific Gravity 1.028 (1.002-1.030); Urine Urobilinogen Negative (Negative)
[2021-08-29 16:59] LABS: Urine Amorphous Crystals Present (Absent); Urine Bacteria 1+ (Absent); Urine Red Blood Cell Trace(0-2/hpf) (Absent); Urine Squamous Epithelial Cell Present (Absent); Urine White Blood Cell 1+(6-10/hpf) (Absent)
[2021-08-29] MEDS ORDERED: Diatrizoate Meg/Sod(CONTRAST) 30 ML ORAL.SOLN PO ONE (19:02)
[2021-08-29] MEDS ORDERED: Dextrose 50% Syringe 50 ml 25 GM/50 ML SYRINGE IV PUSH PRN (19:09)
[2021-08-29] MEDS: NS 0.9% 1000 ml BAG 1,000 ML IV SCH ×2 (19:20→21:55)
[2021-08-29] MEDS ORDERED: Magnesium Sulfate 2 gm BAG 2 GM/50 ML BAG IVPB ONE (20:29)
[2021-08-29] MEDS: Enoxaparin 40 MG/0.4 ML SYR SUBCUT SCH (22:20)
[2021-08-30] MEDS: HYDROmorphone 0.5 MG/0.5 ML SYRINGE IV PRN (05:25)
[2021-08-30 06:39] LABS: ABS Basophils 0.1 10^3/ul (0-0.2); ABS Eosinophils 0.3 10^3/ul (0-0.6); ABS Lymphocytes 1.1 10^3/ul (1.0-4.8); ABS Neutrophils 7.3 10^3/ul (1.5-7.7); Eosinophil % 3.2 %; Hematocrit 37 % (42-52); Hemoglobin 12.5 g/dL (14.0-18.0); Lymphocyte % 11.6 %; Mean Corpuscular HGB Conc 34 g/dL (31-36); Mean Corpuscular Hemoglobin 28 pg (27-31); Mean Corpuscular Volume 84 fL (80-94); Mean Platelet Volume 6.6 fL (7.4-10.4); Platelet Count 404 10^3/uL (150-450); Red Blood Count 4.39 10^6 /uL (4.18-5.48); Red Cell Distribution Width 15 % (10-15); White Blood Count 9.9 10^3/uL (3.5-10.8)
[2021-08-30 06:52] LABS: Calcium 8.8 mg/dL (8.6-10.3); Potassium 4.1 mmol/L (3.5-5.0); eGFR CKD-EPI 65.6 (>60)
[2021-08-30] MEDS: NS 0.9% 1000 ml BAG 1,000 ML IV SCH ×2 (08:16→20:24)
[2021-08-30] MEDS: Enoxaparin 40 MG/0.4 ML SYR SUBCUT SCH (20:21)
[2021-08-31] MEDS: HYDROmorphone 0.5 MG/0.5 ML SYRINGE IV PRN (03:48)
[2021-08-31 12:34] VITALS: BP 145/68
== END 2021-08-31 13:12 | disposition home or self-care (01) | DRG 390 ==
LOC: ED 12:21 → SUATTDRO 18:51 → SSU 18:51
PROVIDERS: ADMIT Hospitalist; ATTEND Internal Medicine